=== PATIENT | male | born 1945 | race Asian ===

== ENCOUNTER 2018-03-07 13:38 | Inpatient (IN) | payer OTHER ==
[2018-03-07 14:36] LABS: ADD MAN DIFF? NO
[2018-03-07 14:38] LABS: BASOPHILS % 0.4 % (0.0-2.0); EOSINOPHILS # 0.1 10^3/ul (0.0-0.5); EOSINOPHILS % 0.9 % (0.0-7.0); HEMATOCRIT 38.9 % (42.0-52.0); HEMOGLOBIN 12.6 g/dl (14.0-18.0); LYMPHOCYTES # 1.4 10^3/ul (0.8-2.9); MEAN CORPUSCULAR HGB CONC 32.4 g/dl (32.0-37.0); MEAN CORPUSCULAR VOLUME 83.3 fl (82.0-101.0); MEAN PLATELET VOLUME 9.7 fl (7.4-10.4); MONOCYTE # 0.6 10^3/ul (0.3-0.9); MONOCYTES % 7.3 % (0.0-11.0); NEUTROPHIL # 5.7 10^3/ul (1.6-7.5); NEUTROPHILS % 73.1 % (39.0-77.0); PLATELET COUNT 404 10^3/UL (140-415); POSITIVE DIFF @See below; RED BLOOD COUNT 4.67 10^6/ul (4.70-6.10); RED CELL DISTRIBUTION WIDTH 12.2 % (11.5-14.5)
[2018-03-07 14:38] LABS: WHITE BLOOD COUNT 7.8 10^3/ul (4.8-10.8)
[2018-03-07 14:56] LABS: ALANINE AMINOTRANSFERASE 17 IU/L (13-69); ALBUMIN 4.6 g/dl (3.3-4.9); ALBUMIN/GLOBULIN RATIO 0.85; ALKALINE PHOSPHATASE 83 IU/L (42-121); ANION GAP 23 (8-16); ASPARTATE AMINO TRANSFERASE 49 IU/L (15-46); BILIRUBIN,INDIRECT 0.4 mg/dl (0-1.1); BILIRUBIN,TOTAL 0.4 mg/dl (0.2-1.3); BLOOD UREA NITROGEN 36 mg/dl (7-20); CARBON DIOXIDE 20 mmol/L (21-31); CHLORIDE 101 mmol/L (97-110); CREATININE 1.44 mg/dl (0.61-1.24); GLUCOSE 155 mg/dl (70-220); LIPASE 54 U/L (23-300); POTASSIUM 4.8 mmol/L (3.5-5.1); SODIUM 139 mmol/L (135-144)
[2018-03-07] MEDS: ONDANSETRON 4 MG INJ IV (15:06)
[2018-03-07] MEDS: SOD CHLORIDE 0.9% 1,000 ML IV (15:06)
[2018-03-07] MEDS: ASPIRIN 300 MG SUPP PR (15:07)
[2018-03-07 15:13] LABS: INR 0.93; PROTIME 12.5 Sec (11.9-14.9)
[2018-03-07 15:29] LABS: TROPONIN-I 0.019 ng/ml (0.000-0.120)
[2018-03-07] MEDS: SOD CHLORIDE 0.9% 100 ML ×2 (16:16→16:23)
[2018-03-07] MEDS: IODIXANOL LOCM 100 ML BTL ×3 (16:17→16:23)
[2018-03-07 17:24] LABS: ADD UMIC NO; UR ASCORBIC ACID NEGATIVE (NEGATIVE); UR BILIRUBIN (Dip) NEGATIVE (NEGATIVE); UR BLOOD (Dip) NEGATIVE (NEGATIVE); UR CLARITY CLEAR (CLEAR); UR COLOR YELLOW (YELLOW); UR GLUCOSE (Dip) NEGATIVE (NEGATIVE); UR KETONES (Dip) 1+ mg/dL (NEGATIVE); UR LEUKOCYTE ESTERASE (Dip) NEGATIVE Leu/ul (NEGATIVE); UR NITRITE (Dip) NEGATIVE (NEGATIVE); UR SPECIFIC GRAVITY (Dip) 1.053 (1.003-1.030); UR TOTAL PROTEIN (Dip) NEGATIVE (NEGATIVE); UR UROBILINOGEN (Dip) NEGATIVE (NEGATIVE)
[2018-03-07] MEDS ORDERED: NACL 0.9% 3 ML SYG IV (19:00)
[2018-03-07] MEDS ORDERED: HYDROCODONE/APAP (5/325) TAB PO (19:00)
[2018-03-07] MEDS: DEXTROSE 5%-0.45% NACL 1,000 ML IV (22:14)
[2018-03-07] MEDS: HEPARIN 5,000 UNIT/0.5 ML VIAL SC (22:17)
[2018-03-07] MEDS: SALINE 0.65% 45 ML NAS SPRAY NASAL ×2 (22:21→22:33)
[2018-03-07] MEDS: morphine 2 MG INJ IV (22:23)
[2018-03-07] MEDS: ATORVASTATIN 20 MG TAB PO (22:32)
[2018-03-07] MEDS: GEMFIBROZIL 600 MG TAB PO (22:33)
[2018-03-08] MEDS: morphine 2 MG INJ IV ×2 (02:53→06:48)
[2018-03-08] MEDS ORDERED: IOHEXOL 14.3 MG(I)/ML (ADULT) BTL PO (06:00)
[2018-03-08] MEDS: METHYLPREDNISOLONE 125 MG INJ IV ×2 (06:43→14:30)
[2018-03-08] MEDS: DEXTROSE 5%-0.45% NACL 1,000 ML IV ×2 (07:58→13:36)
[2018-03-08] MEDS: HEPARIN 5,000 UNIT/0.5 ML VIAL SC ×2 (08:58→21:41)
[2018-03-08] MEDS: ALLOPURINOL 300 MG TAB PO (09:00)
[2018-03-08] MEDS: METOPROLOL (XL) 50 MG TAB PO (09:00)
[2018-03-08] MEDS: CHOLECALCIFEROL 2,000 UNIT CAP PO (09:00)
[2018-03-08] MEDS: ASPIRIN 81 MG TAB PO (09:00)
[2018-03-08] MEDS: GEMFIBROZIL 600 MG TAB PO ×2 (09:00→21:00)
[2018-03-08] MEDS: SALINE 0.65% 45 ML NAS SPRAY NASAL (09:01)
[2018-03-08 09:32] LABS: ALANINE AMINOTRANSFERASE 16 IU/L (13-69); ALBUMIN 3.8 g/dl (3.3-4.9); ALKALINE PHOSPHATASE 69 IU/L (42-121); ANION GAP 13 (8-16); ASPARTATE AMINO TRANSFERASE 45 IU/L (15-46); BILIRUBIN,INDIRECT 0.2 mg/dl (0-1.1); BILIRUBIN,TOTAL 0.2 mg/dl (0.2-1.3); BLOOD UREA NITROGEN 32 mg/dl (7-20); CALCIUM 9.7 mg/dl (8.4-10.2); CARBON DIOXIDE 27 mmol/L (21-31); CHLORIDE 103 mmol/L (97-110); CREATININE 1.15 mg/dl (0.61-1.24); GLUCOSE 145 mg/dl (70-220); LACTATE DEHYDROGENASE 1355 IU/L (313-618); POTASSIUM 4.1 mmol/L (3.5-5.1); SODIUM 139 mmol/L (135-144); URIC ACID 12.3 mg/dl (3.1-7.9)
[2018-03-08 11:34] LABS: IMMUNOGLOBULIN A 127 mg/dl (70-400); IMMUNOGLOBULIN G 2272 mg/dl (700-1600); IMMUNOGLOBULIN M 54 mg/dl (40-230)
[2018-03-08 12:28] LABS: TROPONIN-I 0.017 ng/ml (0.000-0.120)
[2018-03-08 14:38] LABS: HAAIG REFLEX REFLEX FILED
[2018-03-08 14:58] LABS: URIC ACID 11.9 mg/dl (3.1-7.9)
[2018-03-08 14:58] LABS: LACTATE DEHYDROGENASE 1293 IU/L (313-618)
[2018-03-08 15:29] LABS: HEPATITIS B SURFACE ANTIGEN NEGATIVE (NEGATIVE)
[2018-03-08 15:47] LABS: HEPATITIS B CORE ANTIBODY NEGATIVE (NEGATIVE); HEPATITIS C VIRAL ANTIBODY NEGATIVE (NEGATIVE)
[2018-03-08] MEDS: ASPIRIN 300 MG SUPP PR (18:06)
[2018-03-08] MEDS: FLUCONAZOLE 100 MG/50 ML (PMX) 50 ML IVPB (19:03)
[2018-03-08] MEDS: SOD CHLORIDE 0.9% 100 ML (20:39)
[2018-03-08] MEDS: IOHEXOL 300MG/ML 150 ML BTL (20:39)
[2018-03-08] MEDS: ATORVASTATIN 20 MG TAB PO (21:00)
[2018-03-08] MEDS: METHYLPREDNISOLONE 40 MG INJ IV (23:21)
[2018-03-09] MEDS: hydrALAzine 20 MG INJ IV (01:27)
[2018-03-09] MEDS: SALINE 0.65% 45 ML NAS SPRAY NASAL ×3 (02:45→21:07)
[2018-03-09] MEDS: DEXTROSE 5%-0.45% NACL 1,000 ML IV ×2 (04:09→12:25)
[2018-03-09 05:49] LABS: ADD MAN DIFF? NO
[2018-03-09 05:57] LABS: HEMATOCRIT 35.6 % (42.0-52.0); HEMOGLOBIN 11.8 g/dl (14.0-18.0); LYMPHOCYTES % 15.6 % (15.0-51.0); MEAN CORPUSCULAR HGB CONC 33.1 g/dl (32.0-37.0); MEAN CORPUSCULAR VOLUME 81.5 fl (82.0-101.0); MEAN PLATELET VOLUME 9.9 fl (7.4-10.4); MONOCYTE # 0.1 10^3/ul (0.3-0.9); MONOCYTES % 1.5 % (0.0-11.0); NEUTROPHIL # 5.1 10^3/ul (1.6-7.5); NEUTROPHILS % 82.6 % (39.0-77.0); PLATELET COUNT 337 10^3/UL (140-415); RED BLOOD COUNT 4.37 10^6/ul (4.70-6.10); RED CELL DISTRIBUTION WIDTH 12.2 % (11.5-14.5)
[2018-03-09 05:57] LABS: WHITE BLOOD COUNT 6.2 10^3/ul (4.8-10.8)
[2018-03-09 06:31] LABS: ANION GAP 14 (8-16); BLOOD UREA NITROGEN 27 mg/dl (7-20); CALCIUM 9.6 mg/dl (8.4-10.2); CARBON DIOXIDE 27 mmol/L (21-31); CHLORIDE 102 mmol/L (97-110); CREATININE 0.99 mg/dl (0.61-1.24); GLUCOSE 213 mg/dl (70-220); MAGNESIUM 1.7 mg/dl (1.7-2.5); PHOSPHORUS 3.3 mg/dl (2.5-4.9); SODIUM 139 mmol/L (135-144)
[2018-03-09 06:42] LABS: PROTEIN, TOTAL 7.6 g/dL (6.1-8.1)
[2018-03-09] MEDS: METHYLPREDNISOLONE 40 MG INJ IV ×3 (06:58→21:35)
[2018-03-09 07:11] LABS: HEMOGLOBIN A1C 7.1 % (0-5.9)
[2018-03-09] MEDS: GEMFIBROZIL 600 MG TAB PO ×2 (08:15→21:00)
[2018-03-09] MEDS: CHOLECALCIFEROL 2,000 UNIT CAP PO (08:15)
[2018-03-09] MEDS: METOPROLOL (XL) 50 MG TAB PO (08:15)
[2018-03-09] MEDS: ALLOPURINOL 300 MG TAB NGT (08:16)
[2018-03-09] MEDS ORDERED: LIDOCAINE 1% (MDV) 20 ML INJ ×2 (08:22→09:20)
[2018-03-09] MEDS ORDERED: FENTAnyl 50 MCG/ML VIAL (08:23)
[2018-03-09] MEDS ORDERED: MIDAZOLAM 1 MG/ML 2 ML INJ (08:23)
[2018-03-09] MEDS ORDERED: POLYMYXIN/BACITRACIN 1L IRRIG (08:25)
[2018-03-09] MEDS ORDERED: HEPARIN 1000 UNITS/ML 10 ML INJ (08:47)
[2018-03-09] MEDS: ASPIRIN 300 MG SUPP PR (09:00)
[2018-03-09] MEDS: HEPARIN 5,000 UNIT/0.5 ML VIAL SC ×2 (09:00→21:34)
[2018-03-09] MEDS ORDERED: HEPARIN 1000 UNITS/NS (A-LINE) 1,000 ML (09:20)
[2018-03-09] MEDS ORDERED: SOD CHLORIDE 0.9% 500 ML (09:20)
[2018-03-09] MEDS: RASBURICASE 7.5 MG in SOD CHLORIDE 0.9% 50 ML IVPB (10:04)
[2018-03-09] MEDS: INSULIN ASPART [NOVOLOG] 3 ML PEN SC ×3 (12:25→21:13)
[2018-03-09] MEDS ORDERED: DIPHENHYDRAMINE 50 MG INJ IV (14:00)
[2018-03-09] MEDS ORDERED: METHYLPREDNISOLONE 40 MG INJ IV (14:00)
[2018-03-09] MEDS: ONDANSETRON INJ 16 MG, DEXAMETHASONE 4 MG/ML 10 MG in DEXTROSE 5% 50 ML IV (14:00)
[2018-03-09] MEDS ORDERED: MEPERIDINE 50 MG INJ IV (14:00)
[2018-03-09] MEDS: LIDOCAINE 1% (MPF) 5 ML VIAL SC (14:00)
[2018-03-09] MEDS ORDERED: predniSONE 50 MG TAB PO (15:00)
[2018-03-09] MEDS ORDERED: SOD CHLORIDE 0.9% IV (15:00)
[2018-03-09] MEDS ORDERED: RITUXIMAB IV (15:00)
[2018-03-09 17:21] LABS: BETA-2 MICROGLOBULIN 3.76 mg/L (< OR = 2.51)
[2018-03-09] MEDS: SOD CHLORIDE 0.9% IV ×3 (18:00→20:00)
[2018-03-09] MEDS: CYCLOPHOSPHAMIDE IV (18:00)
[2018-03-09] MEDS: FLUCONAZOLE 100 MG/50 ML (PMX) 50 ML IVPB (18:25)
[2018-03-09] MEDS: DOXORUBICIN IV (19:00)
[2018-03-09] MEDS: VINCRISTINE IV (20:00)
[2018-03-09] MEDS: ATORVASTATIN 20 MG TAB PO (21:00)
[2018-03-09] MEDS: METOPROLOL 25 MG TAB NGT (21:00)
[2018-03-09 22:37] LABS: ABNORMAL PROTEIN BAND 1 1.7 g/dL (NONE DETECTED); ALBUMIN 3.6 g/dL (3.8-4.8); ALPHA-1-GLOBULINS 0.3 g/dL (0.2-0.3); ALPHA-2-GLOBULINS 0.9 g/dL (0.5-0.9); BETA 2 GLOBULINS 0.3 g/dL (0.2-0.5); BETA GLOBULINS 0.3 g/dL (0.4-0.6); GAMMA GLOBULINS 2.2 g/dL (0.8-1.7)
[2018-03-10] MEDS: ACCU-CHEK XX (01:38)
[2018-03-10] MEDS: DEXTROSE 5%-0.45% NACL 1,000 ML IV ×2 (02:00→13:18)
[2018-03-10] MEDS: HEPARIN 5,000 UNIT/0.5 ML VIAL SC ×3 (05:57→22:58)
[2018-03-10] MEDS: METHYLPREDNISOLONE 40 MG INJ IV ×2 (06:02→13:30)
[2018-03-10 06:15] LABS: ADD MAN DIFF? NO
[2018-03-10 06:28] LABS: WHITE BLOOD COUNT 15.6 10^3/ul (4.8-10.8)
[2018-03-10 06:28] LABS: BASOPHILS % 0.1 % (0.0-2.0); HEMATOCRIT 35.8 % (42.0-52.0); HEMOGLOBIN 11.7 g/dl (14.0-18.0); LYMPHOCYTES # 0.7 10^3/ul (0.8-2.9); LYMPHOCYTES % 4.4 % (15.0-51.0); MEAN CORPUSCULAR HGB CONC 32.7 g/dl (32.0-37.0); MEAN CORPUSCULAR VOLUME 82.5 fl (82.0-101.0); MONOCYTE # 0.3 10^3/ul (0.3-0.9); MONOCYTES % 1.7 % (0.0-11.0); NEUTROPHIL # 14.5 10^3/ul (1.6-7.5); NEUTROPHILS % 93.1 % (39.0-77.0); PLATELET COUNT 367 10^3/UL (140-415); RED BLOOD COUNT 4.34 10^6/ul (4.70-6.10); RED CELL DISTRIBUTION WIDTH 12.4 % (11.5-14.5)
[2018-03-10 06:34] LABS: MAGNESIUM 1.7 mg/dl (1.7-2.5)
[2018-03-10 06:37] LABS: ALANINE AMINOTRANSFERASE 14 IU/L (13-69); ALBUMIN 3.4 g/dl (3.3-4.9); ALBUMIN/GLOBULIN RATIO 0.85; ALKALINE PHOSPHATASE 64 IU/L (42-121); ANION GAP 13 (8-16); ASPARTATE AMINO TRANSFERASE 29 IU/L (15-46); BILIRUBIN,INDIRECT 0.2 mg/dl (0-1.1); BILIRUBIN,TOTAL 0.2 mg/dl (0.2-1.3); BLOOD UREA NITROGEN 28 mg/dl (7-20); CALCIUM 9.5 mg/dl (8.4-10.2); CARBON DIOXIDE 28 mmol/L (21-31); CHLORIDE 103 mmol/L (97-110); CREATININE 1.01 mg/dl (0.61-1.24); GLUCOSE 204 mg/dl (70-220); LACTATE DEHYDROGENASE 675 IU/L (313-618); POTASSIUM 3.7 mmol/L (3.5-5.1); SODIUM 140 mmol/L (135-144); TOTAL PROTEIN 7.4 g/dl (6.1-8.1)
[2018-03-10 06:42] LABS: URIC ACID < 0.5 mg/dl (3.1-7.9)
[2018-03-10] MEDS: SALINE 0.65% 45 ML NAS SPRAY NASAL ×2 (08:34→21:00)
[2018-03-10] MEDS: INSULIN ASPART [NOVOLOG] 3 ML PEN SC ×4 (08:47→21:00)
[2018-03-10] MEDS: ALLOPURINOL 300 MG TAB NGT (09:00)
[2018-03-10] MEDS: CHOLECALCIFEROL 2,000 UNIT CAP PO (09:00)
[2018-03-10] MEDS: METOPROLOL 25 MG TAB NGT ×2 (09:00→21:00)
[2018-03-10] MEDS: GEMFIBROZIL 600 MG TAB PO ×2 (09:00→21:00)
[2018-03-10] MEDS: ASPIRIN 300 MG SUPP PR (09:00)
[2018-03-10] MEDS: LIDOCAINE 1% (MPF) 5 ML VIAL ×3 (09:09→09:20)
[2018-03-10] MEDS: SOD CHLORIDE 0.9% 500 ML (09:20)
[2018-03-10] MEDS: LIDOCAINE 100 MG SYRINGE (09:28)
[2018-03-10] MEDS: ONDANSETRON 4 MG INJ (09:28)
[2018-03-10] MEDS: PROPOFOL 20 ML (09:28)
[2018-03-10] MEDS: ROCURONIUM 50 MG INJ (09:28)
[2018-03-10] MEDS: FENTAnyl 50 MCG/ML VIAL ×2 (09:28)
[2018-03-10] MEDS ORDERED: METHYLPREDNISOLONE 125 MG INJ IV (12:30)
[2018-03-10] MEDS ORDERED: METHYLPREDNISOLONE 40 MG INJ IV ×2 (12:43→21:00)
[2018-03-10] MEDS: DIPHENHYDRAMINE 50 MG INJ IV ×2 (13:00→14:51)
[2018-03-10] MEDS: SOD CHLORIDE 0.9% 1,000 ML IV ×2 (13:29→22:00)
[2018-03-10] MEDS: ONDANSETRON INJ 16 MG, DEXAMETHASONE 4 MG/ML 10 MG in DEXTROSE 5% 50 ML IV (14:51)
[2018-03-10] MEDS: SOD CHLORIDE 0.9% IV (15:51)
[2018-03-10] MEDS: RITUXIMAB IV (15:51)
[2018-03-10] MEDS: FLUCONAZOLE 100 MG/50 ML (PMX) 50 ML IVPB (17:52)
[2018-03-10] MEDS: ATORVASTATIN 20 MG TAB PO (21:00)
[2018-03-11] MEDS: SOD CHLORIDE 0.9% IV ×3 (00:32→04:55)
[2018-03-11] MEDS: CYCLOPHOSPHAMIDE IV (00:32)
[2018-03-11] MEDS: ACCU-CHEK XX (01:51)
[2018-03-11] MEDS ORDERED: GLUCOSE GEL 15 GRAM TUBE BUCCAL (02:30)
[2018-03-11] MEDS ORDERED: DEXTROSE 50% 50 ML SYRINGE IV ×2 (02:30)
[2018-03-11] MEDS ORDERED: GLUCOSE GEL 15 GRAM TUBE PO ×2 (02:30)
[2018-03-11] MEDS ORDERED: GLUCAGON 1 MG INJ IM (02:30)
[2018-03-11] MEDS: DEXTROSE 5%-0.45% NACL 1,000 ML IV ×2 (02:38→13:20)
[2018-03-11] MEDS: ONDANSETRON 4 MG INJ IV (02:42)
[2018-03-11] MEDS: DOXORUBICIN IV (02:54)
[2018-03-11] MEDS: INSULIN ASPART [NOVOLOG] 3 ML PEN SC ×6 (04:52→21:00)
[2018-03-11] MEDS: VINCRISTINE IV (04:55)
[2018-03-11] MEDS: HEPARIN 5,000 UNIT/0.5 ML VIAL SC ×2 (06:19→14:37)
[2018-03-11] MEDS: SOD CHLORIDE 0.9% 1,000 ML IV ×2 (06:37→18:00)
[2018-03-11 07:28] LABS: ADD MAN DIFF? NO
[2018-03-11 07:37] LABS: ABNORMAL IP MESSAGE 1; HEMATOCRIT 30.9 % (42.0-52.0); HEMOGLOBIN 10.2 g/dl (14.0-18.0); LYMPHOCYTES # 0.2 10^3/ul (0.8-2.9); LYMPHOCYTES % 1.8 % (15.0-51.0); MEAN CORPUSCULAR HEMOGLOBIN 27.6 pg (29.0-33.0); MEAN CORPUSCULAR VOLUME 83.5 fl (82.0-101.0); MEAN PLATELET VOLUME 9.7 fl (7.4-10.4); MONOCYTE # 0.2 10^3/ul (0.3-0.9); MONOCYTES % 2.2 % (0.0-11.0); NEUTROPHIL # 10.3 10^3/ul (1.6-7.5); NEUTROPHILS % 95.5 % (39.0-77.0); PLATELET COUNT 293 10^3/UL (140-415); POSITIVE DIFF @See below; RED CELL DISTRIBUTION WIDTH 12.3 % (11.5-14.5)
[2018-03-11 07:37] LABS: WHITE BLOOD COUNT 10.8 10^3/ul (4.8-10.8)
[2018-03-11 07:47] LABS: ALANINE AMINOTRANSFERASE 16 IU/L (13-69); ALBUMIN 2.8 g/dl (3.3-4.9); ALKALINE PHOSPHATASE 51 IU/L (42-121); ANION GAP 10 (8-16); ASPARTATE AMINO TRANSFERASE 27 IU/L (15-46); BILIRUBIN,INDIRECT 0.1 mg/dl (0-1.1); BILIRUBIN,TOTAL 0.1 mg/dl (0.2-1.3); BLOOD UREA NITROGEN 29 mg/dl (7-20); CALCIUM 8.3 mg/dl (8.4-10.2); CARBON DIOXIDE 25 mmol/L (21-31); CHLORIDE 110 mmol/L (97-110); CREATININE 1.06 mg/dl (0.61-1.24); GLUCOSE 135 mg/dl (70-220); LACTATE DEHYDROGENASE 550 IU/L (313-618); POTASSIUM 3.5 mmol/L (3.5-5.1); SODIUM 141 mmol/L (135-144); TOTAL PROTEIN 6.3 g/dl (6.1-8.1); URIC ACID 0.7 mg/dl (3.1-7.9)
[2018-03-11 07:54] LABS: MAGNESIUM 1.7 mg/dl (1.7-2.5)
[2018-03-11] MEDS: METOPROLOL 25 MG TAB NGT ×2 (08:21→20:28)
[2018-03-11] MEDS: SALINE 0.65% 45 ML NAS SPRAY NASAL ×2 (08:21→20:28)
[2018-03-11] MEDS: ALLOPURINOL 300 MG TAB NGT (08:22)
[2018-03-11] MEDS: GEMFIBROZIL 600 MG TAB PO ×2 (08:22→20:29)
[2018-03-11] MEDS: CHOLECALCIFEROL 2,000 UNIT CAP PO (08:22)
[2018-03-11] MEDS: ASPIRIN 300 MG SUPP PR (08:22)
[2018-03-11] MEDS: METHYLPREDNISOLONE 40 MG INJ IV (13:20)
[2018-03-11] MEDS ORDERED: FILGRASTIM 480 MCG INJ SC (17:00)
[2018-03-11] MEDS: FLUCONAZOLE 100 MG/50 ML (PMX) 50 ML IVPB (18:00)
[2018-03-11] MEDS: ATORVASTATIN 20 MG TAB PO (20:29)
[2018-03-11] MEDS: PANTOPRAZOLE 40 MG INJ IV (20:35)
[2018-03-12] MEDS: ACCU-CHEK XX (02:21)
[2018-03-12] MEDS: DEXTROSE 5%-0.45% NACL 1,000 ML IV ×2 (03:08→20:38)
[2018-03-12] MEDS: SOD CHLORIDE 0.9% 1,000 ML IV ×3 (04:00→23:31)
[2018-03-12 05:00] LABS: ADD MAN DIFF? NO
[2018-03-12 05:11] LABS: ABNORMAL IP MESSAGE 1; HEMOGLOBIN 9.6 g/dl (14.0-18.0); LYMPHOCYTES # 0.3 10^3/ul (0.8-2.9); LYMPHOCYTES % 3.7 % (15.0-51.0); MEAN CORPUSCULAR HEMOGLOBIN 27.3 pg (29.0-33.0); MEAN CORPUSCULAR HGB CONC 33.1 g/dl (32.0-37.0); MEAN CORPUSCULAR VOLUME 82.4 fl (82.0-101.0); MEAN PLATELET VOLUME 9.8 fl (7.4-10.4); MONOCYTE # 0.5 10^3/ul (0.3-0.9); MONOCYTES % 7.1 % (0.0-11.0); NEUTROPHIL # 6.5 10^3/ul (1.6-7.5); NEUTROPHILS % 88.8 % (39.0-77.0); PLATELET COUNT 248 10^3/UL (140-415); POSITIVE DIFF @See below; RED BLOOD COUNT 3.52 10^6/ul (4.70-6.10); RED CELL DISTRIBUTION WIDTH 12.5 % (11.5-14.5)
[2018-03-12 05:11] LABS: WHITE BLOOD COUNT 7.3 10^3/ul (4.8-10.8)
[2018-03-12 05:39] LABS: ALANINE AMINOTRANSFERASE 22 IU/L (13-69); ALBUMIN 2.7 g/dl (3.3-4.9); ALKALINE PHOSPHATASE 47 IU/L (42-121); ANION GAP 11 (8-16); ASPARTATE AMINO TRANSFERASE 25 IU/L (15-46); BILIRUBIN,INDIRECT 0.1 mg/dl (0-1.1); BILIRUBIN,TOTAL 0.1 mg/dl (0.2-1.3); BLOOD UREA NITROGEN 24 mg/dl (7-20); CALCIUM 8.1 mg/dl (8.4-10.2); CARBON DIOXIDE 26 mmol/L (21-31); CHLORIDE 109 mmol/L (97-110); CREATININE 0.97 mg/dl (0.61-1.24); GLUCOSE 127 mg/dl (70-220); LACTATE DEHYDROGENASE 508 IU/L (313-618); POTASSIUM 3.2 mmol/L (3.5-5.1); SODIUM 143 mmol/L (135-144); TOTAL PROTEIN 5.7 g/dl (6.1-8.1); URIC ACID 1.8 mg/dl (3.1-7.9)
[2018-03-12 05:43] LABS: MAGNESIUM 1.8 mg/dl (1.7-2.5)
[2018-03-12] MEDS: PANTOPRAZOLE 40 MG INJ IV (05:56)
[2018-03-12] MEDS: INSULIN ASPART [NOVOLOG] 3 ML PEN SC ×4 (07:50→20:38)
[2018-03-12] MEDS: CHOLECALCIFEROL 2,000 UNIT CAP PO (08:42)
[2018-03-12] MEDS: GEMFIBROZIL 600 MG TAB PO ×2 (08:43→20:26)
[2018-03-12] MEDS: ALLOPURINOL 300 MG TAB NGT (08:43)
[2018-03-12] MEDS: METOPROLOL 25 MG TAB NGT ×2 (08:44→20:26)
[2018-03-12] MEDS: SALINE 0.65% 45 ML NAS SPRAY NASAL ×2 (08:48→20:26)
[2018-03-12] MEDS: POTASSIUM CHLORIDE 100 ML IVPB ×3 (12:25→16:50)
[2018-03-12] MEDS: METHYLPREDNISOLONE 40 MG INJ IV (12:28)
[2018-03-12 12:44] LABS: OCCULT BLOOD STOOL POSITIVE (NEGATIVE)
[2018-03-12] MEDS: FILGRASTIM 480 MCG INJ SC (16:55)
[2018-03-12] MEDS: FLUCONAZOLE 100 MG/50 ML (PMX) 50 ML IVPB (19:48)
[2018-03-12] MEDS: ATORVASTATIN 20 MG TAB PO (20:25)
[2018-03-13] MEDS: ACCU-CHEK XX (02:30)
[2018-03-13 05:13] LABS: ABNORMAL IP MESSAGE 1; HEMATOCRIT 30.7 % (42.0-52.0); HEMOGLOBIN 10.3 g/dl (14.0-18.0); MEAN CORPUSCULAR HEMOGLOBIN 27.6 pg (29.0-33.0); MEAN CORPUSCULAR HGB CONC 33.6 g/dl (32.0-37.0); MEAN CORPUSCULAR VOLUME 82.3 fl (82.0-101.0); MEAN PLATELET VOLUME 10.4 fl (7.4-10.4); PLATELET COUNT 245 10^3/UL (140-415); POSITIVE DIFF @See below; RED BLOOD COUNT 3.73 10^6/ul (4.70-6.10); RED CELL DISTRIBUTION WIDTH 12.6 % (11.5-14.5)
[2018-03-13 05:13] LABS: WHITE BLOOD COUNT 34.5 10^3/ul (4.8-10.8)
[2018-03-13 05:41] LABS: MAGNESIUM 1.7 mg/dl (1.7-2.5)
[2018-03-13 05:44] LABS: ADD MAN DIFF? YES
[2018-03-13 05:50] LABS: ALANINE AMINOTRANSFERASE 16 IU/L (13-69); ALBUMIN 2.9 g/dl (3.3-4.9); ALKALINE PHOSPHATASE 55 IU/L (42-121); ANION GAP 12 (8-16); ASPARTATE AMINO TRANSFERASE 22 IU/L (15-46); BILIRUBIN,INDIRECT 0.4 mg/dl (0-1.1); BILIRUBIN,TOTAL 0.4 mg/dl (0.2-1.3); BLOOD UREA NITROGEN 20 mg/dl (7-20); CALCIUM 8.5 mg/dl (8.4-10.2); CARBON DIOXIDE 25 mmol/L (21-31); CHLORIDE 107 mmol/L (97-110); CREATININE 0.91 mg/dl (0.61-1.24); GLUCOSE 138 mg/dl (70-220); LACTATE DEHYDROGENASE 501 IU/L (313-618); POTASSIUM 3.9 mmol/L (3.5-5.1); SODIUM 140 mmol/L (135-144); TOTAL PROTEIN 6.1 g/dl (6.1-8.1); URIC ACID 2.4 mg/dl (3.1-7.9)
[2018-03-13] MEDS: PANTOPRAZOLE 40 MG INJ IV (05:52)
[2018-03-13] MEDS: DEXTROSE 5%-0.45% NACL 1,000 ML IV (07:58)
[2018-03-13] MEDS: CHOLECALCIFEROL 2,000 UNIT CAP PO (08:26)
[2018-03-13] MEDS: GEMFIBROZIL 600 MG TAB PO ×2 (08:26→20:49)
[2018-03-13] MEDS: INSULIN ASPART [NOVOLOG] 3 ML PEN SC ×4 (08:26→21:49)
[2018-03-13] MEDS: METOPROLOL 25 MG TAB NGT ×2 (08:26→20:49)
[2018-03-13] MEDS: ALLOPURINOL 300 MG TAB NGT (08:26)
[2018-03-13] MEDS: SALINE 0.65% 45 ML NAS SPRAY NASAL ×2 (08:27→20:48)
[2018-03-13] MEDS: SOD CHLORIDE 0.9% 1,000 ML IV ×2 (10:00→20:00)
[2018-03-13 10:02] LABS: ANISOCYTOSIS 1+ (0-0); BAND NEUTROPHILS #M 4.4 10^3/ul (0.0-0.6); BAND NEUTROPHILS % (M) 13 % (0-4); LYMPHOCYTES #M 0.6 10^3/ul (0.8-2.9); LYMPHOCYTES % (M) 2 % (15-51); MICROCYTOSIS 1+ (0-0); MONOCYTE #M 0.3 10^3/ul (0.3-0.9); MONOCYTES % (M) 1 % (0-11); PLATELET ESTIMATE NORMAL; SEG NEUT #M 30.8 10^3/ul (1.6-7.5); SEGMENTED NEUTROPHILS (M) % 85 % (39-77); SMUDGE%M 2 % (0-0)
[2018-03-13 11:25] LABS: WHITE BLOOD COUNT 40.8 10^3/ul (4.8-10.8)
[2018-03-13 11:25] LABS: ABNORMAL IP MESSAGE 1; HEMOGLOBIN 10.6 g/dl (14.0-18.0); MEAN CORPUSCULAR HEMOGLOBIN 27.5 pg (29.0-33.0); MEAN CORPUSCULAR HGB CONC 33.1 g/dl (32.0-37.0); MEAN CORPUSCULAR VOLUME 83.1 fl (82.0-101.0); MEAN PLATELET VOLUME 10.5 fl (7.4-10.4); PLATELET COUNT 248 10^3/UL (140-415); POSITIVE DIFF @See below; RED BLOOD COUNT 3.85 10^6/ul (4.70-6.10); RED CELL DISTRIBUTION WIDTH 12.6 % (11.5-14.5)
[2018-03-13 11:46] LABS: ADD MAN DIFF? YES
[2018-03-13] MEDS: PIPER-TAZO 3.375 GM IV (PMX) 100 ML IVPB ×2 (12:35→17:51)
[2018-03-13] MEDS: METHYLPREDNISOLONE 40 MG INJ IV (12:35)
[2018-03-13 13:13] LABS: ANISOCYTOSIS 1+ (0-0); BAND NEUTROPHILS #M 3.6 10^3/ul (0.0-0.6); BAND NEUTROPHILS % (M) 9 % (0-4); LYMPHOCYTES #M 0.4 10^3/ul (0.8-2.9); LYMPHOCYTES % (M) 1 % (15-51); MICROCYTOSIS 1+ (0-0); MONOCYTE #M 0.4 10^3/ul (0.3-0.9); MONOCYTES % (M) 1 % (0-11); PLATELET ESTIMATE NORMAL; SEG NEUT #M 37.8 10^3/ul (1.6-7.5); SEGMENTED NEUTROPHILS (M) % 89 % (39-77); SMUDGE%M 2 % (0-0)
[2018-03-13] MEDS: ASPIRIN 81 MG TAB PO (14:11)
[2018-03-13 14:47] LABS: ADD UMIC NO; UR ASCORBIC ACID NEGATIVE (NEGATIVE); UR BILIRUBIN (Dip) NEGATIVE (NEGATIVE); UR BLOOD (Dip) NEGATIVE (NEGATIVE); UR CLARITY CLEAR (CLEAR); UR COLOR STRAW (YELLOW); UR GLUCOSE (Dip) NEGATIVE (NEGATIVE); UR KETONES (Dip) NEGATIVE (NEGATIVE); UR LEUKOCYTE ESTERASE (Dip) NEGATIVE Leu/ul (NEGATIVE); UR NITRITE (Dip) NEGATIVE (NEGATIVE); UR TOTAL PROTEIN (Dip) NEGATIVE (NEGATIVE); UR UROBILINOGEN (Dip) NEGATIVE (NEGATIVE)
[2018-03-13] MEDS: FILGRASTIM 480 MCG INJ SC (17:00)
[2018-03-13] MEDS: FLUCONAZOLE 100 MG/50 ML (PMX) 50 ML IVPB (17:51)
[2018-03-13] MEDS: ATORVASTATIN 20 MG TAB PO (20:49)
[2018-03-14] MEDS: PIPER-TAZO 3.375 GM IV (PMX) 100 ML IVPB ×5 (00:10→23:40)
[2018-03-14] MEDS: ACCU-CHEK XX (02:51)
[2018-03-14 05:20] LABS: WHITE BLOOD COUNT 33.9 10^3/ul (4.8-10.8)
[2018-03-14 05:20] LABS: ABNORMAL IP MESSAGE 1; HEMATOCRIT 32.3 % (42.0-52.0); HEMOGLOBIN 10.9 g/dl (14.0-18.0); MEAN CORPUSCULAR HEMOGLOBIN 27.9 pg (29.0-33.0); MEAN CORPUSCULAR HGB CONC 33.7 g/dl (32.0-37.0); MEAN CORPUSCULAR VOLUME 82.8 fl (82.0-101.0); MEAN PLATELET VOLUME 10.6 fl (7.4-10.4); PLATELET COUNT 226 10^3/UL (140-415); POSITIVE DIFF @See below; RED CELL DISTRIBUTION WIDTH 12.5 % (11.5-14.5)
[2018-03-14 05:34] LABS: ALANINE AMINOTRANSFERASE 25 IU/L (13-69); ALBUMIN 2.9 g/dl (3.3-4.9); ALBUMIN/GLOBULIN RATIO 0.85; ALKALINE PHOSPHATASE 68 IU/L (42-121); ANION GAP 11 (8-16); ASPARTATE AMINO TRANSFERASE 20 IU/L (15-46); BILIRUBIN,INDIRECT 0.5 mg/dl (0-1.1); BILIRUBIN,TOTAL 0.5 mg/dl (0.2-1.3); BLOOD UREA NITROGEN 20 mg/dl (7-20); CALCIUM 8.8 mg/dl (8.4-10.2); CARBON DIOXIDE 29 mmol/L (21-31); CHLORIDE 103 mmol/L (97-110); CREATININE 0.88 mg/dl (0.61-1.24); GLUCOSE 147 mg/dl (70-220); LACTATE DEHYDROGENASE 583 IU/L (313-618); POTASSIUM 4.4 mmol/L (3.5-5.1); SODIUM 139 mmol/L (135-144); TOTAL PROTEIN 6.3 g/dl (6.1-8.1); URIC ACID 2.3 mg/dl (3.1-7.9)
[2018-03-14 05:43] LABS: MAGNESIUM 1.9 mg/dl (1.7-2.5)
[2018-03-14] MEDS: SOD CHLORIDE 0.9% 1,000 ML IV ×2 (06:00→12:26)
[2018-03-14] MEDS: PANTOPRAZOLE 40 MG INJ IV (06:01)
[2018-03-14 06:43] LABS: ADD MAN DIFF? YES
[2018-03-14] MEDS: ASPIRIN 81 MG TAB PO (08:59)
[2018-03-14] MEDS: CHOLECALCIFEROL 2,000 UNIT CAP PO (08:59)
[2018-03-14] MEDS: METOPROLOL 25 MG TAB NGT ×2 (09:00→20:38)
[2018-03-14] MEDS: GEMFIBROZIL 600 MG TAB PO ×2 (09:00→20:37)
[2018-03-14] MEDS: ALLOPURINOL 300 MG TAB NGT (09:00)
[2018-03-14] MEDS: SALINE 0.65% 45 ML NAS SPRAY NASAL ×2 (09:01→09:12)
[2018-03-14] MEDS: INSULIN ASPART [NOVOLOG] 3 ML PEN SC ×4 (09:04→23:33)
[2018-03-14 09:14] LABS: ANISOCYTOSIS 1+ (0-0); BAND NEUTROPHILS #M 3.3 10^3/ul (0.0-0.6); BAND NEUTROPHILS % (M) 10 % (0-4); PLATELET ESTIMATE NORMAL; SEG NEUT #M 31.6 10^3/ul (1.6-7.5); SEGMENTED NEUTROPHILS (M) % 90 % (39-77)
[2018-03-14] MEDS: METHYLPREDNISOLONE 40 MG INJ IV (13:40)
[2018-03-14] MEDS: FILGRASTIM 480 MCG INJ SC (17:00)
[2018-03-14] MEDS: FLUCONAZOLE 100 MG/50 ML (PMX) 50 ML IVPB (18:43)
[2018-03-14] MEDS: ATORVASTATIN 20 MG TAB PO (20:37)
[2018-03-15] MEDS: ACCU-CHEK XX (02:58)
[2018-03-15] MEDS: SOD CHLORIDE 0.9% 1,000 ML IV (04:42)
[2018-03-15 05:32] LABS: WHITE BLOOD COUNT 20.1 10^3/ul (4.8-10.8)
[2018-03-15 05:32] LABS: ABNORMAL IP MESSAGE 1; HEMATOCRIT 29.2 % (42.0-52.0); HEMOGLOBIN 9.7 g/dl (14.0-18.0); MEAN CORPUSCULAR HEMOGLOBIN 27.2 pg (29.0-33.0); MEAN CORPUSCULAR HGB CONC 33.2 g/dl (32.0-37.0); MEAN PLATELET VOLUME 10.8 fl (7.4-10.4); PLATELET COUNT 225 10^3/UL (140-415); POSITIVE DIFF @See below; RED BLOOD COUNT 3.56 10^6/ul (4.70-6.10); RED CELL DISTRIBUTION WIDTH 12.5 % (11.5-14.5)
[2018-03-15 05:54] LABS: ALANINE AMINOTRANSFERASE 19 IU/L (13-69); ALBUMIN 2.6 g/dl (3.3-4.9); ALBUMIN/GLOBULIN RATIO 0.92; ALKALINE PHOSPHATASE 53 IU/L (42-121); ANION GAP 13 (8-16); ASPARTATE AMINO TRANSFERASE 16 IU/L (15-46); BILIRUBIN,INDIRECT 0.4 mg/dl (0-1.1); BILIRUBIN,TOTAL 0.4 mg/dl (0.2-1.3); BLOOD UREA NITROGEN 22 mg/dl (7-20); CALCIUM 8.3 mg/dl (8.4-10.2); CARBON DIOXIDE 25 mmol/L (21-31); CHLORIDE 109 mmol/L (97-110); GLUCOSE 122 mg/dl (70-220); LACTATE DEHYDROGENASE 616 IU/L (313-618); POTASSIUM 4.3 mmol/L (3.5-5.1); SODIUM 143 mmol/L (135-144); TOTAL PROTEIN 5.4 g/dl (6.1-8.1); URIC ACID 1.9 mg/dl (3.1-7.9)
[2018-03-15] MEDS: PANTOPRAZOLE 40 MG INJ IV (06:03)
[2018-03-15] MEDS: PIPER-TAZO 3.375 GM IV (PMX) 100 ML IVPB ×3 (06:03→18:11)
[2018-03-15 06:04] LABS: ADD MAN DIFF? YES
[2018-03-15] MEDS: INSULIN ASPART [NOVOLOG] 3 ML PEN SC ×4 (07:50→21:00)
[2018-03-15 07:51] LABS: BAND NEUTROPHILS #M 0.6 10^3/ul (0.0-0.6); BAND NEUTROPHILS % (M) 3 % (0-4); LYMPHOCYTES #M 0.8 10^3/ul (0.8-2.9); LYMPHOCYTES % (M) 4 % (15-51); PLATELET ESTIMATE NORMAL; SEG NEUT #M 18.8 10^3/ul (1.6-7.5); SEGMENTED NEUTROPHILS (M) % 93 % (39-77); SMUDGE%M 11 % (0-0)
[2018-03-15] MEDS: SALINE 0.65% 45 ML NAS SPRAY NASAL ×2 (08:35→21:00)
[2018-03-15] MEDS: ASPIRIN 81 MG TAB PO (09:57)
[2018-03-15] MEDS: ALLOPURINOL 300 MG TAB NGT (09:57)
[2018-03-15] MEDS: CHOLECALCIFEROL 2,000 UNIT CAP PO (09:57)
[2018-03-15] MEDS: GEMFIBROZIL 600 MG TAB PO ×2 (09:57→21:15)
[2018-03-15] MEDS: METOPROLOL 25 MG TAB NGT ×2 (09:58→21:16)
[2018-03-15] MEDS: FLUCONAZOLE 100 MG/50 ML (PMX) 50 ML IVPB (18:54)
[2018-03-15] MEDS: ATORVASTATIN 20 MG TAB PO (21:15)
[2018-03-16] MEDS: PIPER-TAZO 3.375 GM IV (PMX) 100 ML IVPB ×2 (00:07→05:32)
[2018-03-16] MEDS: ACCU-CHEK XX (01:21)
[2018-03-16 04:50] LABS: WHITE BLOOD COUNT 5.7 10^3/ul (4.8-10.8)
[2018-03-16 04:50] LABS: ABNORMAL IP MESSAGE 1; HEMATOCRIT 31.4 % (42.0-52.0); HEMOGLOBIN 10.3 g/dl (14.0-18.0); MEAN CORPUSCULAR HGB CONC 32.8 g/dl (32.0-37.0); MEAN CORPUSCULAR VOLUME 82.4 fl (82.0-101.0); MEAN PLATELET VOLUME 10.7 fl (7.4-10.4); PLATELET COUNT 206 10^3/UL (140-415); POSITIVE DIFF @See below; RED BLOOD COUNT 3.81 10^6/ul (4.70-6.10); RED CELL DISTRIBUTION WIDTH 12.7 % (11.5-14.5)
[2018-03-16 04:55] LABS: ADD MAN DIFF? YES
[2018-03-16 05:14] LABS: ALANINE AMINOTRANSFERASE 16 IU/L (13-69); ALBUMIN 2.9 g/dl (3.3-4.9); ALBUMIN/GLOBULIN RATIO 0.93; ALKALINE PHOSPHATASE 61 IU/L (42-121); ANION GAP 11 (8-16); ASPARTATE AMINO TRANSFERASE 20 IU/L (15-46); BILIRUBIN,INDIRECT 0.7 mg/dl (0-1.1); BILIRUBIN,TOTAL 0.7 mg/dl (0.2-1.3); BLOOD UREA NITROGEN 22 mg/dl (7-20); CALCIUM 8.8 mg/dl (8.4-10.2); CARBON DIOXIDE 30 mmol/L (21-31); CHLORIDE 104 mmol/L (97-110); CREATININE 0.98 mg/dl (0.61-1.24); GLUCOSE 108 mg/dl (70-220); LACTATE DEHYDROGENASE 554 IU/L (313-618); POTASSIUM 3.8 mmol/L (3.5-5.1); SODIUM 141 mmol/L (135-144); URIC ACID 2.2 mg/dl (3.1-7.9)
[2018-03-16] MEDS: PANTOPRAZOLE 40 MG INJ IV (05:32)
[2018-03-16] MEDS: INSULIN ASPART [NOVOLOG] 3 ML PEN SC ×4 (07:50→21:00)
[2018-03-16 07:57] LABS: BAND NEUTROPHILS % (M) 1 % (0-4); EOSINOPHILS % (M) 8 % (0-7); LYMPHOCYTES #M 0.7 10^3/ul (0.8-2.9); LYMPHOCYTES % (M) 14 % (15-51); PLATELET ESTIMATE NORMAL; REACTIVE LYMPHOCYTES% (M) 1 % (0-0); SEG NEUT #M 4.3 10^3/ul (1.6-7.5); SEGMENTED NEUTROPHILS (M) % 76 % (39-77); SMUDGE%M 41 % (0-0)
[2018-03-16] MEDS: SALINE 0.65% 45 ML NAS SPRAY NASAL ×2 (08:31→21:09)
[2018-03-16] MEDS: CHOLECALCIFEROL 2,000 UNIT CAP PO (08:31)
[2018-03-16] MEDS: ASPIRIN 81 MG TAB PO (08:31)
[2018-03-16] MEDS: ALLOPURINOL 300 MG TAB NGT (08:31)
[2018-03-16] MEDS: METOPROLOL 25 MG TAB NGT ×2 (08:31→21:14)
[2018-03-16] MEDS: GEMFIBROZIL 600 MG TAB PO ×2 (08:32→23:19)
[2018-03-16 10:38] LABS: INR 0.93; PROTIME 12.6 Sec (11.9-14.9)
[2018-03-16] MEDS: ATORVASTATIN 20 MG TAB PO (21:09)
[2018-03-17] MEDS: PANTOPRAZOLE 40 MG INJ IV (05:15)
[2018-03-17 05:59] LABS: WHITE BLOOD COUNT 1.7 10^3/ul (4.8-10.8)
[2018-03-17 05:59] LABS: ABNORMAL IP MESSAGE 1; HEMATOCRIT 31.8 % (42.0-52.0); HEMOGLOBIN 10.6 g/dl (14.0-18.0); MEAN CORPUSCULAR HEMOGLOBIN 27.3 pg (29.0-33.0); MEAN CORPUSCULAR HGB CONC 33.3 g/dl (32.0-37.0); MEAN PLATELET VOLUME 11.2 fl (7.4-10.4); PLATELET COUNT 187 10^3/UL (140-415); POSITIVE DIFF @See below; RED BLOOD COUNT 3.88 10^6/ul (4.70-6.10); RED CELL DISTRIBUTION WIDTH 12.6 % (11.5-14.5)
[2018-03-17 06:04] LABS: ADD MAN DIFF? YES
[2018-03-17 06:35] LABS: ALANINE AMINOTRANSFERASE 20 IU/L (13-69); ALBUMIN 3.1 g/dl (3.3-4.9); ALBUMIN/GLOBULIN RATIO 0.91; ALKALINE PHOSPHATASE 68 IU/L (42-121); ANION GAP 13 (8-16); ASPARTATE AMINO TRANSFERASE 26 IU/L (15-46); BILIRUBIN,INDIRECT 0.6 mg/dl (0-1.1); BILIRUBIN,TOTAL 0.6 mg/dl (0.2-1.3); BLOOD UREA NITROGEN 24 mg/dl (7-20); CALCIUM 9.1 mg/dl (8.4-10.2); CARBON DIOXIDE 29 mmol/L (21-31); CHLORIDE 97 mmol/L (97-110); CREATININE 0.95 mg/dl (0.61-1.24); GLUCOSE 121 mg/dl (70-220); LACTATE DEHYDROGENASE 652 IU/L (313-618); POTASSIUM 3.8 mmol/L (3.5-5.1); SODIUM 135 mmol/L (135-144); TOTAL PROTEIN 6.5 g/dl (6.1-8.1)
[2018-03-17] MEDS: INSULIN ASPART [NOVOLOG] 3 ML PEN SC ×5 (07:50→21:00)
[2018-03-17 08:24] LABS: EOSINOPHILS % (M) 17 % (0-7); LYMPHOCYTES #M 0.4 10^3/ul (0.8-2.9); LYMPHOCYTES % (M) 27 % (15-51); MONOCYTES % (M) 1 % (0-11); PLATELET ESTIMATE NORMAL; REACTIVE LYMPHOCYTES% (M) 3 % (0-0); SEGMENTED NEUTROPHILS (M) % 52 % (39-77); SMUDGE%M 38 % (0-0)
[2018-03-17] MEDS: ALLOPURINOL 300 MG TAB NGT (09:00)
[2018-03-17] MEDS: CHOLECALCIFEROL 2,000 UNIT CAP PO (09:00)
[2018-03-17] MEDS: GEMFIBROZIL 600 MG TAB PO ×2 (09:00→21:40)
[2018-03-17] MEDS: SALINE 0.65% 45 ML NAS SPRAY NASAL ×2 (09:00→21:00)
[2018-03-17] MEDS: ASPIRIN 81 MG TAB PO (09:00)
[2018-03-17] MEDS: METOPROLOL 25 MG TAB NGT ×2 (09:00→21:40)
[2018-03-17] MEDS: DEXTROSE 5%-0.45% NACL 1,000 ML IV (11:41)
[2018-03-17] MEDS: MIDAZOLAM 1 MG/ML 2 ML INJ (13:32)
[2018-03-17] MEDS ORDERED: MEPERIDINE 25 MG INJ IV (14:00)
[2018-03-17] MEDS ORDERED: LABETALOL HCL 20MG INJ IV (14:00)
[2018-03-17] MEDS ORDERED: ONDANSETRON 4 MG INJ IV (14:00)
[2018-03-17] MEDS ORDERED: EPHEDrine SULFATE 50 MG/5 ML SYG IV (14:00)
[2018-03-17] MEDS ORDERED: METOCLOPRAMIDE 10 MG INJ IV (14:00)
[2018-03-17] MEDS ORDERED: FENTAnyl 50 MCG/ML VIAL IV ×2 (14:00)
[2018-03-17] MEDS ORDERED: hydrALAzine 20 MG INJ IV (14:00)
[2018-03-17] MEDS ORDERED: HYDROmorphONE 1 MG/5 ML IV SYRINGE IV ×2 (14:00)
[2018-03-17] MEDS: EPHEDrine SULFATE 50 MG/5 ML SYG (14:07)
[2018-03-17] MEDS: PHENYLephrine (100 MCG/ML) 5ML SYG (14:08)
[2018-03-17] MEDS: FENTAnyl 50 MCG/ML VIAL (14:32)
[2018-03-17] MEDS: LIDOCAINE 1% (MPF) 5 ML VIAL (14:32)
[2018-03-17] MEDS: PROPOFOL 20 ML (14:52)
[2018-03-17] MEDS: FILGRASTIM 480 MCG INJ SC (15:59)
[2018-03-17] MEDS ORDERED: INSULIN ASPART [NOVOLOG] 3 ML PEN SC (17:00)
[2018-03-17] MEDS: ATORVASTATIN 20 MG TAB PO (21:40)
[2018-03-18 05:04] LABS: ABNORMAL IP MESSAGE 1; HEMATOCRIT 29.8 % (42.0-52.0); MEAN CORPUSCULAR HEMOGLOBIN 27.4 pg (29.0-33.0); MEAN CORPUSCULAR HGB CONC 33.6 g/dl (32.0-37.0); MEAN CORPUSCULAR VOLUME 81.6 fl (82.0-101.0); MEAN PLATELET VOLUME 10.6 fl (7.4-10.4); PLATELET COUNT 142 10^3/UL (140-415); POSITIVE DIFF @See below; RED BLOOD COUNT 3.65 10^6/ul (4.70-6.10); RED CELL DISTRIBUTION WIDTH 12.5 % (11.5-14.5)
[2018-03-18 05:04] LABS: WHITE BLOOD COUNT 0.8 10^3/ul (4.8-10.8)
[2018-03-18 05:21] LABS: ADD MAN DIFF? YES
[2018-03-18 05:24] LABS: ALANINE AMINOTRANSFERASE 25 IU/L (13-69); ALBUMIN 3.1 g/dl (3.3-4.9); ALBUMIN/GLOBULIN RATIO 1.03; ALKALINE PHOSPHATASE 66 IU/L (42-121); ANION GAP 11 (8-16); ASPARTATE AMINO TRANSFERASE 30 IU/L (15-46); BILIRUBIN,INDIRECT 0.7 mg/dl (0-1.1); BILIRUBIN,TOTAL 0.7 mg/dl (0.2-1.3); BLOOD UREA NITROGEN 24 mg/dl (7-20); CALCIUM 8.6 mg/dl (8.4-10.2); CARBON DIOXIDE 25 mmol/L (21-31); CHLORIDE 103 mmol/L (97-110); CREATININE 0.99 mg/dl (0.61-1.24); GLUCOSE 118 mg/dl (70-220); LACTATE DEHYDROGENASE 764 IU/L (313-618); SODIUM 135 mmol/L (135-144); TOTAL PROTEIN 6.1 g/dl (6.1-8.1); URIC ACID 3.9 mg/dl (3.1-7.9)
[2018-03-18] MEDS: PANTOPRAZOLE 40 MG INJ IV (06:44)
[2018-03-18] MEDS: INSULIN ASPART [NOVOLOG] 3 ML PEN SC ×4 (07:20→20:30)
[2018-03-18] MEDS: ASPIRIN 81 MG TAB PO (08:20)
[2018-03-18] MEDS: CHOLECALCIFEROL 2,000 UNIT CAP PO (08:20)
[2018-03-18] MEDS: ALLOPURINOL 300 MG TAB NGT (08:20)
[2018-03-18] MEDS: GEMFIBROZIL 600 MG TAB PO ×2 (08:20→20:30)
[2018-03-18] MEDS: SALINE 0.65% 45 ML NAS SPRAY NASAL ×2 (08:20→20:29)
[2018-03-18] MEDS: METOPROLOL 25 MG TAB NGT ×2 (08:21→20:32)
[2018-03-18 09:25] LABS: ANISOCYTOSIS 1+ (0-0); BAND NEUTROPHILS % (M) 7 % (0-4); BASOPHILS % (M) 1 % (0-2); EOSINOPHILS % (M) 15 % (0-7); GIANT THROMBO% (M) 3 % (0-0); LYMPHOCYTES #M 0.3 10^3/ul (0.8-2.9); LYMPHOCYTES % (M) 40 % (15-51); MICROCYTOSIS 1+ (0-0); MYELOCYTES % (M) 1 % (0-0); PLATELET ESTIMATE NORMAL; REACTIVE LYMPHOCYTES% (M) 3 % (0-0); SEG NEUT #M 0.3 10^3/ul (1.6-7.5); SEGMENTED NEUTROPHILS (M) % 34 % (39-77); SMUDGE%M 16 % (0-0)
[2018-03-18] MEDS: LORATADINE/PSEUDOEPHED (SR) TAB PO ×2 (12:00→20:30)
[2018-03-18] MEDS: FILGRASTIM 480 MCG INJ SC (16:46)
[2018-03-18] MEDS: ATORVASTATIN 20 MG TAB PO (20:30)
[2018-03-19] MEDS ORDERED: NITROGLYCERIN (SL) 0.4 MG TAB SL (05:00)
[2018-03-19] MEDS ORDERED: morphine 2 MG INJ IV (05:11)
[2018-03-19 05:38] LABS: WHITE BLOOD COUNT 0.4 10^3/ul (4.8-10.8)
[2018-03-19 05:38] LABS: ABNORMAL IP MESSAGE 1; HEMATOCRIT 29.3 % (42.0-52.0); HEMOGLOBIN 9.7 g/dl (14.0-18.0); MEAN CORPUSCULAR HEMOGLOBIN 27.2 pg (29.0-33.0); MEAN CORPUSCULAR HGB CONC 33.1 g/dl (32.0-37.0); MEAN CORPUSCULAR VOLUME 82.1 fl (82.0-101.0); MEAN PLATELET VOLUME 10.8 fl (7.4-10.4); PLATELET COUNT 117 10^3/UL (140-415); POSITIVE DIFF @See below; RED BLOOD COUNT 3.57 10^6/ul (4.70-6.10)
[2018-03-19] MEDS: ACETAMINOPHEN 325 MG TAB PO (05:38)
[2018-03-19] MEDS: PANTOPRAZOLE 40 MG INJ IV (05:38)
[2018-03-19] MEDS: morphine 2 MG INJ IV (05:39)
[2018-03-19 05:43] LABS: ADD MAN DIFF? YES
[2018-03-19 06:21] LABS: TROPONIN-I 0.012 ng/ml (0.000-0.120)
[2018-03-19 06:29] LABS: ALANINE AMINOTRANSFERASE 21 IU/L (13-69); ALBUMIN/GLOBULIN RATIO 1.03; ANION GAP 12 (8-16); ASPARTATE AMINO TRANSFERASE 24 IU/L (15-46); BILIRUBIN,INDIRECT 0.7 mg/dl (0-1.1); BILIRUBIN,TOTAL 0.7 mg/dl (0.2-1.3); BLOOD UREA NITROGEN 18 mg/dl (7-20); CARBON DIOXIDE 23 mmol/L (21-31); CHLORIDE 105 mmol/L (97-110); CREATININE 0.86 mg/dl (0.61-1.24); GLUCOSE 116 mg/dl (70-220); LACTATE DEHYDROGENASE 585 IU/L (313-618); POTASSIUM 3.6 mmol/L (3.5-5.1); SODIUM 136 mmol/L (135-144); TOTAL PROTEIN 5.9 g/dl (6.1-8.1)
[2018-03-19 06:31] LABS: ALKALINE PHOSPHATASE 63 IU/L (42-121); URIC ACID 3.6 mg/dl (3.1-7.9)
[2018-03-19] MEDS: INSULIN ASPART [NOVOLOG] 3 ML PEN SC ×4 (07:20→21:00)
[2018-03-19] MEDS: METOPROLOL 25 MG TAB NGT ×2 (09:14→21:37)
[2018-03-19] MEDS: SALINE 0.65% 45 ML NAS SPRAY NASAL ×2 (09:14→21:33)
[2018-03-19] MEDS: LORATADINE/PSEUDOEPHED (SR) TAB PO ×2 (09:15→21:49)
[2018-03-19] MEDS: ASPIRIN 81 MG TAB PO (09:15)
[2018-03-19] MEDS: ALLOPURINOL 300 MG TAB NGT (09:15)
[2018-03-19] MEDS: CHOLECALCIFEROL 2,000 UNIT CAP PO (09:15)
[2018-03-19] MEDS: GEMFIBROZIL 600 MG TAB PO ×2 (09:15→21:41)
[2018-03-19] MEDS ORDERED: POTASSIUM CHLORIDE (SR) 20 MEQ TAB PO (09:24)
[2018-03-19 09:34] LABS: ANISOCYTOSIS 1+ (0-0); BAND NEUTROPHILS % (M) 1 % (0-4); BASOPHILS % (M) 1 % (0-2); BURR CELLS 1+ (0-0); EOSINOPHILS % (M) 11 % (0-7); ERYTHROBLAST% (NRBC) (M) 2 % (0-0); GIANT THROMBO% (M) 1 % (0-0); HYPOCHROMASIA 1+ (0-0); LYMPHOCYTES #M 0.3 10^3/ul (0.8-2.9); LYMPHOCYTES % (M) 76 % (15-51); MICROCYTOSIS 1+ (0-0); MONOCYTES % (M) 1 % (0-11); PLATELET ESTIMATE DECREASED; REACTIVE LYMPHOCYTES% (M) 1 % (0-0); SEGMENTED NEUTROPHILS (M) % 8 % (39-77); SMUDGE%M 27 % (0-0); SPHEROCYTES 1+ (0-0)
[2018-03-19] MEDS: POTASSIUM CHLORIDE 20 MEQ POWDER FOR ORAL SOLN PO (10:31)
[2018-03-19 12:00] LABS: TROPONIN-I < 0.012 ng/ml (0.000-0.120)
[2018-03-19] MEDS ORDERED: FILGRASTIM 480 MCG INJ SC (17:00)
[2018-03-19 17:03] LABS: ADD UMIC YES; UR ASCORBIC ACID NEGATIVE (NEGATIVE); UR BILIRUBIN (Dip) NEGATIVE (NEGATIVE); UR BLOOD (Dip) 1+ mg/dL (NEGATIVE); UR CLARITY CLEAR (CLEAR); UR COLOR YELLOW (YELLOW); UR GLUCOSE (Dip) NEGATIVE (NEGATIVE); UR KETONES (Dip) 1+ mg/dL (NEGATIVE); UR LEUKOCYTE ESTERASE (Dip) NEGATIVE Leu/ul (NEGATIVE); UR NITRITE (Dip) NEGATIVE (NEGATIVE); UR RBC 6 /HPF (0-5); UR SPECIFIC GRAVITY (Dip) 1.014 (1.003-1.030); UR TOTAL PROTEIN (Dip) NEGATIVE (NEGATIVE); UR UROBILINOGEN (Dip) 1+ mg/dL (NEGATIVE); UR WBC 0 /HPF (0-5)
[2018-03-19] MEDS: morphine LIQ (10 MG/5 ML) CUP PO (18:00)
[2018-03-19] MEDS: FILGRASTIM 480 MCG INJ SC (18:01)
[2018-03-19] MEDS: ATORVASTATIN 20 MG TAB PO (21:33)
[2018-03-19] MEDS: PHENAZOPYRIDINE 100 MG TAB PO (21:33)
[2018-03-20] MEDS: PANTOPRAZOLE 40 MG INJ IV (06:19)
[2018-03-20] MEDS: INSULIN ASPART [NOVOLOG] 3 ML PEN SC ×2 (08:32→13:09)
[2018-03-20] MEDS: SALINE 0.65% 45 ML NAS SPRAY NASAL (08:33)
[2018-03-20] MEDS: PHENAZOPYRIDINE 100 MG TAB PO ×2 (08:34→13:17)
[2018-03-20] MEDS: GEMFIBROZIL 600 MG TAB PO (08:34)
[2018-03-20] MEDS: METOPROLOL 25 MG TAB NGT (08:34)
[2018-03-20] MEDS: ASPIRIN 81 MG TAB PO (08:34)
[2018-03-20] MEDS: LORATADINE/PSEUDOEPHED (SR) TAB PO (08:34)
[2018-03-20] MEDS: CHOLECALCIFEROL 2,000 UNIT CAP PO (08:34)
[2018-03-20] MEDS: ALLOPURINOL 300 MG TAB NGT (08:35)
[2018-03-20 09:50] LABS: WHITE BLOOD COUNT 0.5 10^3/ul (4.8-10.8)
[2018-03-20 09:50] LABS: ABNORMAL IP MESSAGE 1; HEMATOCRIT 28.9 % (42.0-52.0); HEMOGLOBIN 9.7 g/dl (14.0-18.0); MEAN CORPUSCULAR HEMOGLOBIN 27.4 pg (29.0-33.0); MEAN CORPUSCULAR HGB CONC 33.6 g/dl (32.0-37.0); MEAN CORPUSCULAR VOLUME 81.6 fl (82.0-101.0); MEAN PLATELET VOLUME 10.5 fl (7.4-10.4); PLATELET COUNT 109 10^3/UL (140-415); POSITIVE DIFF @See below; RED BLOOD COUNT 3.54 10^6/ul (4.70-6.10); RED CELL DISTRIBUTION WIDTH 11.9 % (11.5-14.5)
[2018-03-20 09:57] LABS: ADD MAN DIFF? YES
[2018-03-20 12:36] LABS: ANISOCYTOSIS 1+ (0-0); BAND NEUTROPHILS % (M) 1 % (0-4); BASOPHILS % (M) 4 % (0-2); GIANT THROMBO% (M) 3 % (0-0); LYMPHOCYTES #M 0.3 10^3/ul (0.8-2.9); LYMPHOCYTES % (M) 64 % (15-51); MICROCYTOSIS 1+ (0-0); MONOCYTE #M 0.1 10^3/ul (0.3-0.9); MONOCYTES % (M) 22 % (0-11); PLATELET ESTIMATE DECREASED; SEGMENTED NEUTROPHILS (M) % 9 % (39-77); SMUDGE%M 15 % (0-0)
[2018-03-20] MEDS: FILGRASTIM 480 MCG INJ SC (13:17)
[2018-03-20] MEDS: HEPARIN (100 UNITS/ML) 5 ML SYG CATHETER (17:02)
== END 2018-03-20 17:40 | disposition home health service (06) | DRG 841 ==
LOC: E/R 13:38 → MS1 03-08 19:27 → 6WM 18:10
PROC: 0JH63WZ Insertion of Totally Implantable Vascular Access Device into Chest Subcutaneous Tissue and Fascia, Percutaneous Approach (ICD-10-PCS; principal; 2018-03-09 07:30)
PROC: 02H633Z Insertion of Infusion Device into Right Atrium, Percutaneous Approach (ICD-10-PCS; 2018-03-09 07:30)
PROC: 3E04305 Introduction of Other Antineoplastic into Central Vein, Percutaneous Approach (ICD-10-PCS; 2018-03-09 08:03)
PROC: 07DR3ZX Extraction of Iliac Bone Marrow, Percutaneous Approach, Diagnostic (ICD-10-PCS; 2018-03-09 08:03)
PROC: 07DR3ZX Extraction of Iliac Bone Marrow, Percutaneous Approach, Diagnostic (ICD-10-PCS; 2018-03-09 08:03)
DX: C83.31 Diffuse large B-cell lymphoma, lymph nodes of head, face, and neck (principal); N17.9 Acute kidney failure, unspecified; I82.C11 Acute embolism and thrombosis of right internal jugular vein; R13.10 Dysphagia, unspecified; E83.52 Hypercalcemia; E86.0 Dehydration; I25.10 Atherosclerotic heart disease of native coronary artery without angina pectoris; I10 Essential (primary) hypertension; E11.9 Type 2 diabetes mellitus without complications; D72.819 Decreased white blood cell count, unspecified; R07.9 Chest pain, unspecified; Z95.1 Presence of aortocoronary bypass graft
CPT/HCPCS: 36415; 70491; 71045; 71275; 74176; 74177; 74230; 77012; 80048; 80053; 81001; 81003; 82270; 82784; 82962; 83036; 83615; 83690; 83735; 84100; 84155; 84165; 84484; 84560; 85025; 85610; 85730; 86320; 86704; 86709; 86803; 87040; 87086; 87340; 88305; 88311; 88313; 92526; 92610; 92611; 93005; 93306; 96374; 97116; 97161; 97530; 99285-25; J9310